=== PATIENT | female | born 1990 | race Caucasian/White ===

== ENCOUNTER → 2019-11-03 14:01 | Outpatient (CLI) | payer BC, SELFPAY ==
--- NOTE | ~2019-11-03 | US_ITS ---
EXAMINATION: US venous doppler [facility] EXAM DATE: 11/03/2019 14:32 INDICATION: Left leg pain, DVT. TECHNIQUE: Multiple grayscale, color flow and Doppler images of the left lower extremity deep venous system obtained and reviewed. There is no prior study for comparison. FINDINGS: LEFT SIDE Common femoral: -------- Normal. Profunda femoral: ------- Normal. Femoral: Normal. Popliteal: Normal. Posterior tibial: --------- Normal. Peroneal: Normal. Gastrocnemius: Thrombosed. Soleus: Not visualized. Greater saphenous: ----- Normal. Lesser saphenous: ------ Not visualized. IMPRESSION: Positive for left gastrocnemius DVT. I discussed DVT with Nanette in the office of the ordering clinician Mayra Rosales, MILL MANAGER-BC at 14:44 DASHBOARD DEVELOPER. Reviewed, dictated and finalized at location A. BOARD DEVELOPER IMPRESSION: Positive for left gastrocnemius DVT. I discussed DVT with Nanette in the office of the ordering clinician Mayra Rosales, MILL MANAGER-BC at 11/03/2019 14:44 DASHBOARD DEVELOPER.
== END ==
PROVIDERS: PCP Nurse Practitioner Family; Visit Provider Nurse Practitioner Family
DX: R79.1 Abnormal coagulation profile (principal); I82.462 Acute embolism and thrombosis of left calf muscular vein
CPT/HCPCS: 93971

== ENCOUNTER 2019-11-03 15:24 | Emergency (ER) | payer BC, SELFPAY ==
[2019-11-03 16:03] VITALS: BP 142/89; PULSE 98; RESP 19; TEMP 36.4; O2SAT 99
[2019-11-03 16:34] LABS: Basophils Percent Auto 0.5 % (0.2-1.2); Eosinophils Absolute Auto 0.3 K/mm3 (0-0.3); Eosinophils Percent Auto 3.2 % (0-4.4); Hematocrit 43.3 % (37.0-47.0); Hemoglobin 14.8 g/dL (12.0-15.0); Immature Granulocyte Absolute 0.03 K/mm3 (0.00-0.031); Immature Granulocyte Percent A 0.4 % (0-0.5); Lymphocytes Absolute Auto 1.48 K/mm3 (0.9-3.2); Lymphocytes Percent Auto 19.1 % (18.3-44.2); Mean Corpuscular HGB Conc 34.2 g/dl (32-36); Mean Corpuscular Hemoglobin 28.9 pg (26-34); Mean Corpuscular Volume 84.6 fl (80-100); Mean Platelet Volume 10.7 fl (7.4-10.4); Monocytes Absolute Auto 0.6 K/mm3 (0.1-0.6); Monocytes Percent Auto 7.6 % (2.6-8.5); Neutrophils Absolute Auto 5.3 K/mm3 (1.3-6.7); Neutrophils Percent Auto 69.2 % (45.5-73.1); Platelet Count Result 241 k/mm3 (150-375); Red Blood Count 5.12 M/mm3 (4.2-5.4); Red Cell Distribution Width 12.5 % (11.5-14.5); White Blood Count 7.7 K/mm3 (4.5-10.0)
[2019-11-03 16:42] LABS: Prothrombin Time 12.4 Seconds (11.1-14.7)
[2019-11-03 16:47] LABS: Alanine Aminotransferase 14 U/L (4-35); Albumin Level 4.2 g/dL (3.5-5.1); Alkaline Phosphatase 60 U/L (38-126); Aspartate Amino Transferase 18 U/L (14-36); Bilirubin,Total 0.3 mg/dL (0.2-1.3); Blood Urea Nitrogen 12 mg/dL (7-17); Calcium 9.6 mg/dL (8.4-10.2); Carbon Dioxide 25 mmol/L (22-30); Chloride 102 mmol/L (98-107); Estimated Glomerular Filt Rate > 60; Glucose 104 mg/dL (65-105); Potassium 3.6 mmol/L (3.4-5.0); Sodium 138 mmol/L (137-145)
--- NOTE | 2019-11-03 18:30 | ED.EXTPRO ---
HPI - Extremity Problem General Chief complaint: Extremity Problem,Nontraumatic Stated complaint: diagnosed with DVT today, sent to ED Time Seen by Provider: 11/03/19 17:40 Source: old records reviewed History of Present Illness HPI Narrative: Patient presents emergency department from radiology for left lower extremity DVT. Patient states she has had pain in the left leg for approximately the past 6 days. Pain is located in the left calf region with swelling present. She denies any chest pain or shortness of breath. Denies any fevers or chills. Patient states she is on control pills. Denies any tobacco use Review of Systems Review of Systems: Narrative: Gen.: Denies fevers or chills ENT: Denies congestion Respiratory: Denies shortness of breath or cough CV: Denies chest pain or palpitations GI: Denies abdominal pain nausea, emesis or diarrhea Musculoskeletal: See HPI Neuro: Denies numbness, tingling, weakness or focal weakness Skin: Denies rash Except as documented, all other systems reviewed and negative PMFSH Past Medical History Medical History (Updated 11/03/19 @ 18:33 by Xavier Gilliam DO) Hypothyroidism Social History Social History (Updated 11/03/19 @ 18:31 by Xavier Gilliam DO) Smoking status: Never smoker Gender identity (if verbalized by the patient): Female Exam Narrative: Exam Narrative: APPEARANCE: No acute distress, nontoxic, resting in bed EYES: EOMI HEENT: Normocephalic, atraumatic, OMM RESPIRATORY: No respiratory distress Clear to auscultation bilaterally with no rhonchi wheezing or rales. CARDIOVASCULAR: Regular rate and rhythm without murmurs rubs or gallops. ABDOMINAL: Soft, nontender, nondistended, no rebound or guarding MUSCULOSKELETAl: Moves all extremities. No clubbing, cyanosis tender palpation over left posterior calf with swelling present, no tenderness of the knee or ankle full range of motion of both, dorsalis pedis pulse 2+ NEURO: Awake and alert. Following commands, speech normal, no focal deficits SKIN:: Warm, dry. No rashes lesions or abrasions PSYCHIATRIC: Normal affect/mood, Course Course Emergency Course: Reviewed outpatient ultrasound Discussed with Dr. De La Garza for Dr. Pruitt presentation work-up he agrees with the Xarelto at this time Discussed with patient results of workup and diagnosis. Discussed need for follow-up with primary care, proper use of medication, and reasons to return to the emergency department. Patient understands and agrees to current treatment plan Vital Signs Vital signs: Vital Signs Temperature 97.6 F 11/03/19 16:03 Pulse Rate 98 11/03/19 16:03 Respiratory Rate 19 11/03/19 16:03 Blood Pressure 142/89 H 11/03/19 16:03 Pulse Oximetry 99 11/03/19 16:03 Temperature 97.6 F 11/03/19 16:03 Pulse Rate 98 11/03/19 16:03 Respiratory Rate 19 11/03/19 16:03 Blood Pressure 142/89 H 11/03/19 16:03 Pulse Oximetry 99 11/03/19 16:03 MDM - Extremity (Nontraumatic) Lab Data Result diagrams: 11/03/19 16:10 11/03/19 16:10 Labs: Lab Results 11/03/19 11/03/19 11/03/19 Range/Units 16:10 16:10 16:10 WBC 7.7 (4.5-10.0) K/mm3 RBC 5.12 (4.2-5.4) M/mm3 Hgb 14.8 (12.0-15.0) g/dL Hct 43.3 (37.0-47.0) % MCV 84.6 (80-100) fl MCH 28.9 (26-34) pg MCHC 34.2 (32-36) g/dl RDW 12.5 (11.5-14.5) % Plt Count 241 (150-375) k/mm3 MPV 10.7 H (7.4-10.4) fl Immature Gran % (Auto) 0.4 (0-0.5) % Neut % (Auto) 69.2 (45.5-73.1) % Lymph % (Auto) 19.1 (18.3-44.2) % [place] % (Auto) 7.6 (2.6-8.5) % Eos % (Auto) 3.2 (0-4.4) % Baso % (Auto) 0.5 (0.2-1.2) % Lymph # (Auto) 1.48 (0.9-3.2) K/mm3 [place] # (Auto) 0.6 (0.1-0.6) K/mm3 Eos # (Auto) 0.3 (0-0.3) K/mm3 Baso # (Auto) 0.0 (0.0-0.1) K/mm3 Abs Immat Gran (auto) 0.03 (0.00-0.031) K/mm3 Absolute Neuts (auto) 5.3 (1.3-6.7) K/mm3 Absolute Nucleated RBC 0.0
[2019-11-03 19:04] VITALS: BP 125/89; PULSE 91; RESP 16; O2SAT 98
[2019-11-03] MEDS: RIVAROXABAN 15 MG TABLET PO (19:04)
== END 2019-11-03 19:05 | disposition home or self-care (01) ==
PROVIDERS: Emergency Medicine; Emergency Provider Emergency Medicine; PCP Nurse Practitioner Family
DX: I82.462 Acute embolism and thrombosis of left calf muscular vein (principal); E03.9 Hypothyroidism, unspecified
CPT/HCPCS: 36415; 80053; 85025; 85610; 85730; 99283; A9270

== ENCOUNTER 2023-01-31 13:40 | Outpatient (CLI) | payer BC, SELFPAY ==
--- NOTE | ~2023-01-31 | US_ITS ---
EXAMINATION: US thyroid DATE: 01/31/2023 13:59 INDICATION: Hypothyroidism. TECHNIQUE: Multiple ultrasound images of the thyroid were obtained. COMPARISON: None. FINDINGS: The right thyroid lobe measures 4.3 x 1.7 x 1.3 cm. The left thyroid lobe measures 3.6 x 1.3 x 1.0 c m. There is diffusely heterogeneous and hypoechoic with normal vascularity. No discrete nodule. IMPRESSION: 1. Heterogeneous thyroid, likely chronic lymphocytic (Sahra) thyroiditis. Reviewed, dictated and finalized at location A.
== END 2023-01-31 13:41 ==
LOC: MICIMG 13:41
PROVIDERS: PCP Nurse Practitioner; Visit Provider Nurse Practitioner
DX: E03.9 Hypothyroidism, unspecified (principal)
CPT/HCPCS: 76536

== ENCOUNTER 2024-04-22 13:39 | Outpatient (CLI) | payer BC, SELFPAY ==
--- NOTE | ~2024-04-22 | US_ITS ---
EXAMINATION:US venous doppler LE LT INDICATION:Left calf pain TECHNIQUE: Multiple grayscale, color flow and Doppler images of the left lower extremity deep venous systems were obtained and reviewed. COMPARISON:11/03/2019 FINDINGS: The common femoral, superficial femoral and popliteal veins demonstrate normal respiratory variation, augmentation and compressibility. Color flow is also seen within the posterior tibial, pe roneal, greater saphenous and profunda veins. IMPRESSION: 1: No lower extremity deep venous thrombosis. Reviewed, dictated and finalized at location B.
== END 2024-04-22 13:40 ==
PROVIDERS: PCP Nurse Practitioner; Visit Provider Nurse Practitioner
DX: M79.662 Pain in left lower leg (principal); Z86.718 Personal history of other venous thrombosis and embolism
CPT/HCPCS: 93971